=== PATIENT | male | born 1980 | race African-American/Black ===

== ENCOUNTER 2023-12-16 08:59 | Emergency (ER) | payer OTHER ==
[2023-12-16 09:03] VITALS: BP 123/88; PULSE 72; RESP 18; TEMP 97.8; BMI 29.4
[2023-12-16] MEDS ORDERED: MECLIZINE HCL 25 MG TABLET (FP) ONE (11:14)
[2023-12-16] MEDS ORDERED: ONDANSETRON 4 MG/2 ML VIAL ONE (11:14)
[2023-12-16] MEDS: SODIUM CHLORIDE 1,000 ML IV STA (11:24)
[2023-12-16] MEDS: ONDANSETRON 4 MG/2 ML VIAL IVPUSH ONE (11:24)
[2023-12-16] MEDS: MECLIZINE HCL 25 MG TABLET (FP) PO ONE (11:24)
== END 2023-12-16 13:03 | disposition home or self-care (01) ==
LOC: JER 08:59
PROC: 3E033GC Introduction of Other Therapeutic Substance into Peripheral Vein, Percutaneous Approach (ICD-10-PCS; principal; 2023-12-16)
PROC: 3E0337Z Introduction of Electrolytic and Water Balance Substance into Peripheral Vein, Percutaneous Approach (ICD-10-PCS; 2023-12-16)
DX: H81.10 Benign paroxysmal vertigo, unspecified ear (principal); R11.0 Nausea
CPT/HCPCS: 99284-25